=== PATIENT | female | born 1960 | race Caucasian/White ===

== ENCOUNTER 2017-12-25 21:07 | Observation (INO) ==
[2017-12-26] MEDS ORDERED: Bisacodyl 10 MG Supp RECTAL PRN (00:10)
[2017-12-26] MEDS ORDERED: Temazepam 15 MG Capsule PO PRN (00:10)
[2017-12-26] MEDS ORDERED: Morphine Inj 4 MG/ML Vial IV.PUSH PRN (00:11)
[2017-12-26] MEDS: Sod Chloride 0.9% Inj 1,000 ML IV.CONT SCH ×2 (01:52→18:19)
[2017-12-26] MEDS ORDERED: Chlorhexidine Gluconate 2% 1 Pack (2 Cloths) TOPICAL SCH (03:30)
[2017-12-26] MEDS ORDERED: Metoprolol Tartrate 25 MG Tablet PO SCH (03:30)
[2017-12-26] MEDS ORDERED: Sodium Chlor 0.9% Inj 500 ML IV.SIG SCH (04:00)
[2017-12-26] MEDS ORDERED: Piperacil/Tazo 3.375 GM Premix 50 ML IV.SIG SCH (05:45)
--- NOTE | 2017-12-26 05:58 | P.OP ---
- Preoperative Diagnosis (1) Acute appendicitis - Postoperative Diagnosis (1) Acute appendicitis Date of procedure: 12/26/17 Procedure: lap appy Anesthesia: GETA Surgeon: Jimmy Bowles MD Estimated blood loss (mL): 5 Pathology: other (appendix) Operation and Findings: distended inflamed appendix
[2017-12-26] MEDS: Bupivacaine/Epinephrine PF Inj 0.5% 10 ML Vial ONE ×2 (06:03→06:35)
--- NOTE | 2017-12-26 06:15 | MB ---
cc: Jimmy Bowles MD DATE: 12/26/2017 CHIEF COMPLAINT: Abdominal pain, appendicitis. HISTORY OF PRESENT ILLNESS: The patient is a 57-year-old female with multiple medical issues who presents with acute onset of periumbilical and right lower quadrant abdominal pain. She states the pain started 3 days ago and continued to progress and get worse. She rates the pain as a 7/10 currently, a 6/10 after IV morphine, worse with movement, better with lying still. She came to the emergency department in [place], had further workup and evaluation including CT scan showing acute appendicitis, along with a WBC of 11.1. She states she has never had pain quite like this. She does note some associated nausea, vomiting and diarrhea. She is a current everyday smoker, 1-1/2 packs per day. She has a history of fem-pop bypass and multiple medical issues. She was transferred to [place] for further definitive management and care. PAST MEDICAL HISTORY: CVA, hypothyroidism, coronary artery disease, stroke, peripheral vascular disease. PAST SURGICAL HISTORY: Tubal ligation, , fem-pop bypass. MEDICATIONS: See EMR. ALLERGIES: NO KNOWN DRUG ALLERGIES. SOCIAL HISTORY: Positive 1.5 pack smoker. Occasional ETOH. Denies IVDA. FAMILY HISTORY: Denies diabetes or hypertension. REVIEW OF SYSTEMS: GENERAL: Denies fevers, chills. HEENT: Denies eye pain, ear pain. NECK: Denies swelling or pain. LUNGS: Denies cough or wheeze. HEART: Denies palpitations or chest pain. ABDOMEN: Complains of nausea, vomiting, diarrhea, abdominal pain. GENITOURINARY: Denies dysuria or hematuria. ENDOCRINE: Denies polyuria or polydipsia, hypothyroid. NEUROLOGIC: Complains of left-sided weakness. Denies numbness. PHYSICAL EXAMINATION: GENERAL: The patient in no acute distress. VITAL SIGNS: Temperature 98.5, pulse 74, respirations 17, blood pressure 115/71, saturation 97%. HEENT: Pupils equal, round, reactive. NECK: Supple. Trachea midline. LUNGS: Bilateral expansion, clear. HEART: S1, S2. Regular. ABDOMEN: Soft. Positive tenderness to palpation in right lower quadrant. Minimal rebound in right lower quadrant. No peritoneal signs. EXTREMITIES: Warm and well perfused. NEUROLOGICAL: Awake, alert, oriented x3. Normal speech. Decreased left upper extremity movement, motor. PSYCHIATRIC: Appropriate mood and affect. LABORATORY AND DIAGNOSTIC DATA: WBC 11.1, hemoglobin 13.6, hematocrit 39, platelets 327. Sodium 142, potassium 3.5, chloride 107, CO2 of 28, BUN 8, creatinine 0.9, glucose 108. CT reviewed by myself showing acute thick-walled, indurated appendicitis. No free air, no free fluid. ASSESSMENT: The patient is a 57-year-old female with multiple medical issues who presents with acute abdominal pain consistent with appendicitis. PLAN: After full workup, the patient with above-noted issues. At this point, the patient needs to be n.p.o., IV fluids, pain control, IV antibiotics. We will take the patient to the operating room for a laparoscopic appendectomy, possible open. Discussed with the patient in detail. The patient understands and agrees and would like to proceed. Thank you for the consultation. MD NATI Cummings/IRMA , 05:55 AM , 06:13 AM
[2017-12-26] MEDS ORDERED: Sugammadex Inj 200 MG/2 ML Vial IV.PUSH ONE (06:21)
[2017-12-26] MEDS ORDERED: Piperacil/Tazo 3.375 GM Premix 50 ML IV.SIG ONE (06:30)
[2017-12-26] MEDS ORDERED: fentaNYL Citrate Inj 100 MCG/2 ML Ampul ONE (06:44)
[2017-12-26] MEDS ORDERED: Senna/Docusate Sodium 8.6/50 MG Tablet PO SCH (09:00)
--- NOTE | 2017-12-26 10:20 | P.HPIM ---
[facility]: UNKNOWN History of Present Illness: 57-year-old female with a history of hypothyroidism presented to the hospital with complaint of abdominal pain and bloating for 3 days. She also reported associated nausea, vomiting, and diarrhea. At times the pain is severe and is worse with movement. Workup in the emergency room consistent with acute appendicitis. - Diagnosis (1) Acute appendicitis Review of Systems All other systems reviewed negative except as stated in HPI PMFSH - History History Provided By: Patient - Medical History Medical History: Medical History (Last Reviewed 12/26/17 @ 13:46 by Varsha Slaughter MD) Femoral-femoral bypass graft thrombosis, right (Acute) CVA (cerebral vascular accident) Hypercholesterolemia - Family History Family History: Family History (Last Updated 12/26/17 @ 13:47 by Varsha Slaughter MD) Other Family history non-contributory - Tobacco History Second Hand Smoke Exposure: Yes Tobacco Use In Past 30 Days: Yes Smoking Status: Heavy tobacco smoker Tobacco Type: Cigarettes - Alcohol History How Often Do You Have a Drink Containing Alcohol: Never - Substance Use History Substance History: No History of Abuse - Immunization History Hx Influenza Vaccine This Season: No Medications and Allergies Active Medications: Active Medications Al Hydroxide/Mg Hydroxide (Milk Of Magnesia Liq) 30 ml PO Q12H PRN PRN Reason: Mild Constipation Bisacodyl (Dulcolax Supp) 10 mg RECTAL DAILY PRN PRN Reason: SEVERE CONSITIPATION Chlorhexidine Gluconate (Chlorhexidine 2% Cloth) 3 pack [employer]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 [employer]ONMENT[employer] [facility] Stop: 12/29/17 03:28 Sodium Chloride (Ns Inj) 1,000 mls @ 100 mls/hr IV.CONT .Q10H [facility] Last Infusion: 12/26/17 05:32 Dose: 0 mls/hr Lactated Ringer's (Lr 1000 Ml Inj) 1,000 mls @ 30 mls/hr IV.SIG .Q24H [facility] Stop: 12/29/17 03:28 Last Infusion: 12/26/17 09:58 Dose: 0 mls/hr Sodium Chloride (Ns Inj) 500 mls @ 30 mls/hr IV.SIG .Q10H [facility] Stop: 12/29/17 03:28 Lactulose (Lactulose Liq) 30 ml PO DAILY PRN PRN Reason: SEVERE CONSITIPATION Metoprolol Tartrate (Lopressor) 25 mg PO [employer]NA[employer]ONMENT[employer] [facility] Stop: 12/29/17 03:28 Miscellaneous Information ([facility]) 1 each OTHER UNSCH PRN PRN Reason: SEE LABEL COMMENTS Stop: 12/27/17 06:44 Morphine Sulfate (Morphine Inj) 2 mg IV.PUSH Q4H PRN PRN Reason: PAIN 6-10 Last Admin: 12/26/17 01:52 Dose: 2 mg Ondansetron HCl (Zofran Odt) 4 mg PO Q6H PRN PRN Reason: NAUSEA OR VOMITING Povidone Iodine (Betadine 5% Antisepsis Kit) 1 applicatio EACH NARE [employer]MENT[employer] [facility] Stop: 12/29/17 03:28 Senna/Docusate Sodium (Mandie-Colace) 1 tab PO BID [facility] Last Admin: 12/26/17 09:10 Dose: 1 tab Sennosides (Senokot) 17.2 mg PO Q12H PRN PRN Reason: Moderate Constipation Temazepam (Restoril) 15 mg PO HS PRN PRN Reason: INSOMNIA Allergies Allergy/AdvReac Type Severity Reaction Status Date / Time No Known Allergies Allergy Unverified 12/25/17 21:16 Home Medications Medication Instructions Recorded Confirmed Type No Known Home Medications 12/25/17 12/26/17 History Exam Vital signs: Vital Signs 12/26/17 01:15 12/26/17 04:15 12/26/17 06:36 Temperature 98.1 F 98.1 F 98.0 F Pulse Rate 59 L 55 L 75 Respiratory Rate 18 18 12 Blood Pressure 110/61 98/50 L 141/68 H Pulse Oximetry 97 95 97 12/26/17 06:45 12/26/17 07:00 12/26/17 07:14 Temperature 98.0 F Pulse Rate 66 63 62 Respiratory Rate 15 12 12 Blood Pressure 123/61 102/50 L 110/52 L Pulse Oximetry 96 100 99 12/26/17 10:04 Temperature 97.2 F L Pulse Rate 64 Respiratory Rate 20 Blood Pressure 99/55 L Pulse Oximetry 96 Intake & Output 12/25/17 12/26/17 12/26/17 18:59 06:59 18:59 Intake Total 450 / 450 Output Total 5 / 5 Balance 445 / 445 Weight 54.4 kg Intake: IV 450 / 450 NS Inj 1,000 ML @ 100 mls/hr IV 400 / 400 .CONT .Q10H [facility] Rx#:[id number] Zosyn 3.375 GM Premix 50 ML @ 50 / 50 100 mls/hr IV.SIG ONCE ONE Rx#: [id number] Oral 0 / 0 Output: Estimated Blood Loss 5 / 5 Other: Date of Last Bowel Movement 12/23/17 Weight On Admission 54.4 kg Narrative: GENERAL: This is a well-nourished, well-developed patient, in no apparent distress. CARDIOVASCULAR: Normal rate and regular rhythm without murmurs, gallops, or rubs. RESPIRATORY: Good respiratory efforts. Breath sounds equal and clear to auscultation bilaterally. GASTROINTESTINAL: Abdomen soft, non-distended. Laparoscopic sites appear clean. Normal active bowel sounds MUSCULOSKELETAL: Extremities without cyanosis, or edema. NEURO: Alert & Oriented x4 to person, place, time, situation. Moves all ext x4 PSYCH: Appropriate mood and affect. Caprini VTE Risk Assessment Caprini VTE Risk Assessment: No/Low Risk (score <= 1) Caprini Risk Assessment Model: Point Value = 1 Point Value = 2 Point Value = 3 Point Value = 5 Age 41-60 Minor surgery BMI > 25 kg/m2 Swollen legs Varicose veins or History of unexplained or recurrent spontaneous Oral contraceptives or hormone replacement Sepsis (< 1 month) Serious lung disease, including pneumonia (< 1 month) Abnormal pulmonary function Acute myocardial infarction Congestive heart failure (< 1 month) History of inflammatory bowel disease Medical patient at bed rest Age 61-74 Arthroscopic surgery Major open surgery (> 45 min) Laparoscopic surgery (> 45 min) Malignancy Confined to bed (> 72 hours) Immobilizing plaster cast Central venous access Age >= 75 History of VTE Family history of VTE Factor V Leiden Prothrombin [id number] Lupus anticoagulant Anticardiolipin antibodies Elevated serum homocysteine Heparin-induced thrombocytopenia Other congenital or acquired thrombophilia Stroke (< 1 month) Elective arthroplasty Hip, pelvis, or leg fracture Acute spinal cord injury (< 1 month) Prophylaxis Regimen: Total Risk Factor Score Risk Level Prophylaxis Regimen 0-1 Low Early ambulation 2 Moderate Order ONE of the following: *Sequential Compression Device (SCD) *Heparin 5000 units SQ BID 3-4 Higher Order ONE of the following medications: *Heparin 5000 units SQ TID *Enoxaparin/Lovenox 40 mg SQ daily (WT < 150 kg, CrCl > 30 mL/min) *Enoxaparin/Lovenox 30 mg SQ daily (WT < 150 kg, CrCl > 10-29 mL/min) *Enoxaparin/Lovenox 30 mg SQ BID (WT < 150 kg, CrCl > 30 mL/min) AND/OR *Sequential Compression Device (SCD) 5 or more Highest Order ONE of the following medications: *Heparin 5000 units SQ TID (Preferred with Epidurals) *Enoxaparin/Lovenox 40 mg SQ daily (WT < 150 kg, CrCl > 30 mL/min) *Enoxaparin/Lovenox 30 mg SQ daily (WT < 150 kg, CrCl > 10-29 mL/min) *Enoxaparin/Lovenox 30 mg SQ BID (WT < 150 kg, CrCl > 30 mL/min) AND *Sequential Compression Device (SCD) Assessment and Plan - Assessment (1) Acute appendicitis Code(s): K35.80 - Unspecified acute appendicitis Status: Acute - Plan 57-year-old female with history of hypothyroidism, tobacco abuse admitted with acute appendicitis. Acute appendicitis: Patient has been seen by surgery and underwent laparoscopic appendectomy. She is doing very well postop. If the patient tolerates her diet , she can be discharged home and follow-up outpatient with surgery. Hypothyroidism: She can resume home dose Synthroid Tobacco abuse: The patient was counseled on cessation. Discharge Planning: Discharge patient to home Condition on discharge: Improved Regular Diet as tolerated Ad Sandrine activity Rx written: See [facility] rec Follow-up with primary care physician H&P: Quality - VTE Deep Vein Thrombosis/Pulmonary Embolism Present on Admission: No (1) Acute appendicitis Qualifiers: Acute appendicitis type: unspecified acute appendicitis type Qualified Code(s ): K35.80 - Unspecified acute appendicitis
--- NOTE | 2017-12-26 10:27 | MP ---
cc: Jimmy Bowles MD DATE OF OPERATION: 12/26/2017 DATE OF PROCEDURE: 12/26/2017 PREOPERATIVE DIAGNOSIS: Acute appendicitis. POSTOPERATIVE DIAGNOSIS: Acute appendicitis. PROCEDURE PERFORMED: Laparoscopic appendectomy. SURGEON: Jimmy Bowles MD RELATIONS SPECIALIST: See OR sheet. ANESTHESIA: GETA. IV FLUIDS: See Anesthesia sheet. ESTIMATED BLOOD LOSS: 5 mL. DRAINS: None. COMPLICATIONS: None. PATHOLOGY: The appendix was sent for pathology. WOUND CLASSIFICATION: Clean/contaminated. FINDINGS: A distended, small, indurated, inflamed appendix, nonperforated. INDICATION FOR PROCEDURE: The patient is a 57-year-old female who presents with acute onset of periumbilical right lower quadrant pain. The pain has been going on for 3 days. The patient had CT scan in [place] with finding of acute appendicitis; therefore, the decision for transfer to [facility] and operative intervention. DETAILS OF PROCEDURE: The patient was taken to the operating suite and placed in supine position. She was prepped and draped in the usual sterile fashion after induction of general endotracheal anesthesia. Brief timeout done stating correct patient, procedure, surgical site. We were all in agreement with this. Attention first directed to the umbilicus where local anesthetic was injected. A small stab cassie incision was done with #11 blade. A Veress needle placed. Saline drop test confirmed intra-abdominal placement. The Veress needle exchanged for a 5 mm port. On cursory inspection, no evidence of injury. Abdomen insufflated again to 15 mm pneumoperitoneum. Two other ports were placed, including a 5 mm suprapubic and a left lower quadrant 12 mm port. The patient was placed in Trendelenburg, airplaned to the left. The right lower quadrant was explored. There were some adhesions with omentum and bowel that were taken down with scissors. The right lower quadrant was further explored to identify the appendix, which was noted to be short and very indurated and inflamed. A window was made in the mesoappendix with a [place] Bovie electrocautery. A GI stapler 35 was used to transect the base of the appendix. Next, the mesoappendix was transected with Endo-HOMA 35. The appendix was placed in the appendix bag, removed through the left lower quadrant port. Hemostasis was obtained. Ports were removed. Pneumoperitoneum was removed. A 0 Vicryl suture was done to the left lower quadrant port. A 4-0 Monocryl was done to all subcuticular incisions. Sterile dressings were placed, including Mastisol and Steri-Strips. The patient tolerated the procedure well. There were no intraoperative complications. All lap, needle and instrument counts were correct at the end of the procedure. The patient was extubated and taken stable to PACU. MD NATI Cummings/KOFI , 10:00 AM , 10:25 AM
[2017-12-26] MEDS ORDERED: Neostigmine Inj 5 MG/5 ML Syringe IV.PUSH ONE (12:00)
[2017-12-26] MEDS ORDERED: Lidocaine PF 1% Inj 5 ML Syringe INFILTRATN ONE (12:00)
[2017-12-26] MEDS ORDERED: Phenylephrine/NS 1000 MCG/10ML Syringe IV.PUSH ONE (12:00)
[2017-12-26] MEDS ORDERED: Glycopyrrolate Inj 1 MG/5 ML Syringe IV.PUSH ONE (12:00)
--- NOTE | 2017-12-26 14:42 | ECG ---
Date Performed: 12/26/2017 Time Performed: 05:18:46 PTAGE: 57 years EKG: Sinus bradycardia. Prolonged QT interval Anterior T wave changes are nonspecific Borderline ECG NO PREVIOUS TRACING DOCTOR: Rafy Corrales Interpretating Date/Time 12/26/2017 14:40:12
[2017-12-26 17:58] VITALS: BP 98/56; PULSE 61; RESP 17; TEMP 97.8; O2SAT 95
== END 2017-12-26 19:26 | disposition home or self-care (01) ==
LOC: NEDDLT 21:07 → N06 21:07
PROVIDERS: ADMIT Family Medicine; ATTEND Family Medicine
PROC: LAPAPPY (ICD-10-PCS; 2017-12-26 05:44)